=== PATIENT | male | born 1985 | race Caucasian/White ===

== ENCOUNTER 2021-07-02 20:16 | Emergency (ER) | payer OTHER ==
[2021-07-02 20:22] VITALS: BP 165/102; PULSE 87; TEMP 99; BMI 38.0
[2021-07-02] MEDS ORDERED: DIPHTH,PERTUSS(ACELL),TET 0.5 ML DISP.SYRIN IM ONE (21:32)
[2021-07-02] MEDS ORDERED: CEPHALEXIN MONOHYDRATE 500 MG CAPSULE (UD) ONE (21:35)
[2021-07-02] MEDS ORDERED: CEPHALEXIN MONOHYDRATE 500 MG CAPSULE (UD) PO ONE (21:44)
== END 2021-07-02 21:52 | disposition home or self-care (01) ==
LOC: FER 20:16
PROC: 0HQFXZZ Repair Right Hand Skin, External Approach (ICD-10-PCS; principal; 2021-07-02)
DX: S61.216A Laceration without foreign body of right little finger without damage to nail, initial encounter (principal); W26.0XXA Contact with knife, initial encounter; Y92.9 Unspecified place or not applicable
CPT/HCPCS: 99284-25

== ENCOUNTER 2021-07-09 09:56 | Emergency (ER) | payer OTHER ==
[2021-07-09 10:01] VITALS: BP 135/105; PULSE 90; TEMP 99.2; BMI 79.7
== END 2021-07-09 10:19 | disposition home or self-care (01) ==
LOC: FER 09:56
DX: Z48.02 Encounter for removal of sutures (principal)
CPT/HCPCS: 99281-25